=== PATIENT | female | born 1985 ===

== ENCOUNTER → 2017-02-04 | Outpatient (CLI) | payer BC ==
[2017-02-04 13:21] LABS: BASOPHILS % (AUTO) 0.4 %; HCT - HEMATOCRIT 38.8 % (37.0-47.0); HGB - HEMOGLOBIN 12.7 g/dL (12.0-16.0); LYMPHOCYTES # (AUTO) 1.4 10^3/uL (1.5-3.5); LYMPHOCYTES % (AUTO) 16.3 %; MEAN CORPUSCULAR HEMOGLOBIN 28.6 pg (27.0-31.0); MEAN CORPUSCULAR HGB CONC 32.6 g/dL (32.0-36.0); MEAN CORPUSCULAR VOLUME 87.6 fL (81.0-99.0); MEAN PLATELET VOLUME 7.4 fL (7.9-10.8); MONOCYTES # (AUTO) 0.5 10^3/uL (0.0-1.0); MONOCYTES % (AUTO) 5.4 %; NEUTROPHILS # (AUTO) 6.7 10^3/uL (1.5-6.6); NEUTROPHILS % (AUTO) 77.9 %; NUCLEATED RED BLOOD CELLS AUTO 0.1 /100WBC; RED BLOOD COUNT 4.43 10^6/uL (4.20-5.40); RED CELL DISTRIBUTION WIDTH 15.2 % (12.0-15.0); UNCORRECTED WHITE BLOOD COUNT 8.6 x10^3/uL; WHITE BLOOD COUNT 8.6 x10^3/uL (4.8-10.8)
[2017-02-04 14:11] LABS: ALBUMIN/GLOBULIN RATIO 1.1 (1.0-2.2); BILIRUBIN,TOTAL 0.3 mg/dL (0.2-1.0); BUN - BLOOD UREA NITROGEN 15 mg/dL (6-20); CALCIUM 8.9 mg/dL (8.5-10.3); CARBON DIOXIDE - CO2 27 mmol/L (21-32); CHLORIDE 101 mmol/L (101-111); CREATININE 0.8 mg/dL (0.4-1.0); GFR - MDRD 84 (>89); GLUCOSE 85 mg/dL (70-100); POTASSIUM 4.9 mmol/L (3.5-5.0); SODIUM 134 mmol/L (135-145); TOTAL PROTEIN 7.4 g/dL (6.7-8.2)
== END ==
LOC: LAB.WCP 08:39
PROVIDERS: ATTEND Family Medicine
DX: E84.9 Cystic fibrosis, unspecified (principal)
CPT/HCPCS: 36415; 80053; 84443; 85025